=== PATIENT | female | born 1990 | race Two or more races ===

== ENCOUNTER 2021-08-24 15:34 | Emergency (ER) | payer MEDICAID ==
[~2021-08-24] VITALS: Ht 170.2 cm; Wt 111.0 kg
[2021-08-24 15:37] VITALS: BP 115/78
[2021-08-24] MEDS ORDERED: MECLIZINE 25MG TABLET PO ONE (16:00)
[2021-08-24] MEDS ORDERED: MECL-159 MT (17:02)
== END 2021-08-24 17:17 | disposition home or self-care (01) ==
LOC: ER 15:34
DX: R42 Dizziness and giddiness (principal); H93.8X2 Other specified disorders of left ear
CPT/HCPCS: 81025; 93005; 99283; J8597